=== PATIENT | female | born 1950 | race Caucasian/White ===

== ENCOUNTER 2017-09-04 18:22 | Emergency (ER) | payer BC, OTHER ==
--- NOTE | 2017-09-04 18:56 | EDPHY ---
H & P Stated Complaint: COUGH/SOB DX BRONCHITIS/CHEST CARCAMO WITH BREATHING Time Seen by Provider: 09/04/17 18:56 HPI/ROS: CHIEF COMPLAINT: Cough HISTORY OF PRESENT ILLNESS: The patient presents to the ED with fever, chest congestion and cough which has been present since Saturday. She saw her primary care provider who diagnosed her with a likely bronchitis. She has been taking Tylenol at home but continued to have symptoms of cough and shortness of breath. She denies any asymmetric calf pain or swelling. She denies any vomiting or diarrhea. She denies additional complaints. REVIEW OF SYSTEMS: A comprehensive 10 point review of systems is otherwise negative aside from elements mentioned in the history of present illness. Source: Patient Exam Limitations: No limitations - Personal History Current Tetanus/Diphtheria Vaccine: Yes - Medical/Surgical History Hx Asthma: No Hx Chronic Respiratory Disease: No Hx Diabetes: No Hx Cardiac Disease: No Hx Renal Disease: No Hx Cirrhosis: No Hx Alcoholism: No Hx HIV/AIDS: No Hx Splenectomy or Spleen Trauma: No Other PMH: HTN/pna - Social History Smoking Status: Former smoker - Physical Exam Exam: General Appearance: Alert, no distress Eyes: Pupils equal and round no pallor or injection ENT, Mouth: Mucous membranes moist Respiratory: There are no retractions, lungs are clear to auscultation Cardiovascular: Regular rate and rhythm Gastrointestinal: Abdomen is soft and nontender, no masses, bowel sounds normal Neurological: A&O, normal motor function, normal sensory exam, normal cranial nerves Skin: Warm and dry, no rashes Musculoskeletal: Neck is supple nontender Extremities: symmetrical, full range of motion Constitutional: Initial Vital Signs Temperature (C) 36.7 C 09/04/17 18:27 Heart Rate 87 09/04/17 18:27 Respiratory Rate 20 09/04/17 18:27 Blood Pressure 152/95 H 09/04/17 18:27 O2 Sat (%) 95 09/04/17 18:27 O2 Delivery Mode Room Air Allergies/Adverse Reactions: amoxicillin Allergy (Verified 09/04/17 18:26) Home Medications: Medication Instructions Recorded Albuterol [Ventolin Hfa Inhaler] 2 puffs IH QID PRN #1 mdi 09/04/17 Losartan Potassium 09/04/17 levOFLOXACIN [levAQUIN (*)] 750 mg PO DAILY #9 tab 09/04/17 Medical Decision Making - Diagnostics Imaging Results: Imaging Impressions Chest X-Ray 09/04/17 19:11 Impression: 1. Dense right middle lobe consolidation presumably pneumonia with follow up suggested to ensure complete resolution. 2. See above report for additional findings.. ED Course/Re-evaluation: The patient presents to the ED for evaluation of a persistent cough. She has had a subjective fever over the past several days. The patient did have a chest x-ray which demonstrates a right middle lobe pneumonia. The patient's vital signs are stable and she is not acutely hypoxemic. She appears appropriate for outpatient management. The patient will be started on Levaquin and given a prescription for albuterol Differential Diagnosis: Differential diagnosis considered includes asthma, bronchitis, pneumonia - Data Points Medications Given: Discontinued Medications Albuterol (Proventil Neb) 3 ml IH EDNOW ONE Stop: 09/04/17 19:23 Last Admin: 09/04/17 19:36 Dose: 3 ml Departure - Departure Disposition: Home, Routine, Self-Care Clinical Impression: Pneumonia Condition: Good Instructions: Community Acquired Pneumonia (ED) Additional Instructions: 1. Please take antibiotics as directed for next 10 days. 2. Use albuterol inhaler as needed for shortness of breath. 3. Return to the ED for markedly worsening symptoms or other concerns. 4. Please follow-up with your primary care provider as scheduled. 5. I recommend repeating your x-ray in 2 weeks to ensure the pneumonia has cleared.
[2017-09-04] MEDS ORDERED: ALBUTEROL 3 ML DEYVIAL IH ONE (19:22)
[2017-09-04 20:02] VITALS: TEMP 98.6
[2017-09-04 20:30] VITALS: BP 143/75; PULSE 82; RESP 18; O2SAT 97
== END 2017-09-04 20:29 | disposition home or self-care (01) ==
DX: J18.9 Pneumonia, unspecified organism (principal); I10 Essential (primary) hypertension; Z87.891 Personal history of nicotine dependence
CPT/HCPCS: 71046; 99283; J7613